=== PATIENT | male | born 1970 | race Caucasian/White ===

== ENCOUNTER 2017-10-03 20:29 | Emergency (ER) | payer SELFPAY ==
[~2017-10-03] VITALS: Ht 195.6 cm; Wt 138.0 kg
[2017-10-03 20:38] VITALS: BP 134/89; PULSE 126; RESP 18; TEMP 98.3; O2SAT 95
--- NOTE | 2017-10-03 21:22 | PD ---
HPI Chief Complaint: Injury Time Seen by Provider: 21:15 Travel History International Travel<30 days: No Contact w/Intl Traveler<30days: No Traveled to known affect area: No History of Present Illness HPI 46-year-old male here for evaluation of left leg pain. The patient reports that around 8 PM while at work and walking [place] he experienced sudden onset of pain in his left calf. At that time pain has been worsening and is severe, constant, worse with movement and palpation. He states it is very difficult for him to walk because of the pain. No chest pain or dyspnea. No other injuries. No history of DVT or PE, however there is a strong family history of DVT and PE. PFSH Past Medical History Cardiovascular Problems: Yes (HTN) Diabetes: Yes Patient Takes Glucophage: Yes (METFORMIN LAST TAKEN 10/02/17 2100) Hypertension: Yes Past Surgical History Abdominal Surgery: Yes (INGUINAL HERNIA) Appendectomy: Yes Social History Alcohol Use: No Tobacco Use: No Substance Use: No Allergies-Medications (Allergen,Severity, Reaction): Coded Allergies: No Known Allergies (Unverified , 10/03/17) Reported Meds & Prescriptions Reported Meds & Active Scripts Active Percocet (Oxycodone-Acetaminophen) 10-325 mg Tab 1 Tab PO Q6H PRN Review of Systems Except as stated in HPI: all other systems reviewed are Neg Physical Exam Narrative GENERAL: Well-developed, well-nourished, comfortable, no apparent distress. SKIN: Focused skin assessment warm/dry. HEAD: Atraumatic. Normocephalic. EYES: Pupils equal and round. No scleral icterus. No injection or drainage. ENT: Mucous membranes pink and moist. CARDIOVASCULAR: Regular rate and rhythm. Bilateral dorsalis pedis pulses are brisk and equal. RESPIRATORY: No accessory muscle use. Clear to auscultation. Breath sounds equal bilaterally. GASTROINTESTINAL: Abdomen soft, non-tender, nondistended. MUSCULOSKELETAL: Left calf with significant tenderness without swelling, compartments are soft, no obvious deformity. Bedolla test performed bilaterally shows plantar flexion bilaterally. Normal range of flexion and extension in bilateral knees with normal strength. Normal range of plantar flexion and dorsiflexion bilaterally with normal strength bilaterally. NEUROLOGICAL: Awake and alert. No obvious cranial nerve deficits. Motor grossly within normal limits. Normal speech. PSYCHIATRIC: Appropriate mood and affect; insight and judgment normal. Data Data Last Documented VS Vital Signs Date Time Temp Pulse Resp B/P (MAP) Pulse Ox O2 Delivery O2 Flow Rate FiO2 10/03/17 23:08 80 16 10/03/17 20:38 98.3 95 Room Air Orders Orders Tibia/Fibula (Ap/Lat) (10/03/17 ) Us Leg Venous Doppler (10/03/17 ) Morphine Inj (Morphine Inj) (10/03/17 21:30) Splinting (10/03/17 ) Crutches (10/03/17 ) Ed Discharge Order (10/03/17 22:46) Fiberglass Short Leg Splint Ad (10/03/17 ) [facility] Medical Decision Making Medical Screen Exam Complete: Yes Emergency Medical Condition: Yes Differential Diagnosis Muscular strain, Achilles tendon rupture unlikely, DVT Narrative Course Vital signs reviewed. Heart rate improved from 12/26/82 without any intervention. Left tib-fib x-ray: Unremarkable exam of the left tibia. Left lower extremity venous duplex: Normal exam. No DVT. Bedolla test shows positive plantar flexion bilaterally. Compartments in left lower extremity are supple. Bilateral dorsalis pedis pulses are brisk and equal. Bilateral feet are warm. Patient likely strained his soleus her gastrocnemius muscle. Plan is to place him in a posterior short leg splint on the left and discharge him home with crutches and pain medicine and have him follow-up with orthopedist this week. He was informed on when to return to the emergency department. He verbalizes understanding and agreement with plan. Diagnosis Primary Impression: Muscle strain of left lower leg Qualified Codes: S86.912A - Strain of unspecified muscle(s) and tendon(s) at lower leg level, left leg, initial encounter Referrals: Jesse Puckett MD 3 days Orthopedist Primary Care Physician 3 days Additional Instructions: Follow-up with a primary care physician this week. Follow-up with orthopedic surgeon Dr. Puckett or an orthopedist of your choice this week. Return to the emergency department for worsening symptoms or any other concerns. Scripts Oxycodone-Acetaminophen (Percocet) 10-325 mg Tab 1 TAB PO Q6H Y for PAIN, #15 TAB 0 Refills Prov: Paddy Myles MD 10/03/17 Disposition: 01 DISCHARGE HOME Condition: Stable Paddy Myles MD Oct 03, 2017 21:22
[2017-10-03] MEDS ORDERED: MORPHINE SULFATE 8 MG/ML INJ IM ONE (21:30)
--- NOTE | 2017-10-03 21:53 | RADRPT ---
EXAM DATE/TIME: 10/03/2017 21:33 [facility] COMPARISON: No previous studies available for comparison. INDICATIONS : Patient was walking today and felt a pop in lower left leg. Complains of tightness and pain in lower left leg. No known injury. MEDICAL HISTORY : None. SURGICAL HISTORY : None. ENCOUNTER: Initial ACUITY: 1 day PAIN SCORE: 10/10 LOCATION: Left Tib/Fib FINDINGS: Two view examination of the left tibia demonstrates no evidence of fracture or dislocation. Bony min eralization is normal. The soft tissue structures are intact. CONCLUSION: Unremarkable examination of the left tibia. Angel Garcia MD on October 03, 2017 at 21:50 Board Certified Radiologist. This report was verified electronically.
--- NOTE | 2017-10-03 22:37 | RADRPT ---
EXAM DATE/TIME: 10/03/2017 22:14 [facility] COMPARISON: No previous studies available for comparison. INDICATIONS : Left leg pain. MEDICAL HISTORY : Hypertension. Diabetes. Inguinal hernia. SURGICAL HISTORY : Appendectomy. ENCOUNTER: Initial ACUITY: 3 days PAIN SCORE: 7/10 LOCATION: Left leg. TECHNIQUE: Venous ultrasound of the leg was performed from the inguinal ligament to the proximal calf. Real-delmy e, color Doppler and spectral tracing, compression and augmentation techniques were used. FINDINGS: There is normal compressibility of the deep venous system from the inguinal region to the proximal ca lf. No echogenic clot is seen in the lumen of the common femoral, femoral, popliteal, and posterior tibial veins. There is a normal response of the venous system to proximal and distal augmentation an d respiration. CONCLUSION: Normal examination. Angel Garcia MD on October 03, 2017 at 22:34 Board Certified Radiologist. This report was verified electronically.
[2017-10-03] MEDS ORDERED: PERC10TA27 PO (22:46)
[2017-10-03 23:08] VITALS: PULSE 80; RESP 16
== END 2017-10-03 23:08 | disposition home or self-care (01) ==
LOC: NEPD 20:29
DX: S86.912A Strain of unspecified muscle(s) and tendon(s) at lower leg level, left leg, initial encounter (principal); I10 Essential (primary) hypertension; E11.9 Type 2 diabetes mellitus without complications
CPT/HCPCS: 29515; 73590; 93971; 96372; 99284; E0113; J2270